=== PATIENT | female | born 1945 | race Caucasian/White ===

== ENCOUNTER → 2024-02-12 10:48 | Outpatient (REF) | payer OTHER, SELFPAY | LOC: DHSLP 10:48 | PROVIDERS: ATTENDING PHYSICIAN Internal Medicine Critical Care Medicine; FAMILY PHYSICIAN Internal Medicine Hematology & Oncology | DX: G47.33 Obstructive sleep apnea (adult) (pediatric) (principal) | CPT/HCPCS: 95810 ==